=== PATIENT | female | born 1955 | race Caucasian/White ===

== ENCOUNTER → 2017-03-30 09:20 | Outpatient (CLI) | payer MEDICARE, SELFPAY ==
--- NOTE | 2017-03-30 08:00 | PET_ITS ---
EXAMINATION: FDG PET CT INDICATIONS: A 62-year-old female with history of ovarian carcinoma presenting for restaging examination. COMPARISON EXAMINATION: CT of the abdomen and pelvis report dated 02/21/17. INDEX LESION SIZE SUV INTERPRETATION Abdominal retroperitoneum and mesentery, hepatic capsule-cindy hepatis 56.7 mm x 59.0 mm largest (frame 150) 10.5 (max) Fulfills quantitative criteria for viable neoplasm Bilateral adrenal glands 4.3 (max) Fulfills quantitative criteria for viable neoplasm TECHNIQUE: Following the intravenous administration of 13.33 mCi of F-18 deoxyglucose via the right forearm, multiplanar image acquisitions of the neck, chest, abdomen and pelvis to level of mid thigh, obtained at one hour post radiopharmaceutical administration contemporaneously interpreted with the current CT of the neck, chest, abdomen and pelvis to level of mid thigh, dated 03/30/[address] of the abdomen and pelvis report dated 02/21/17 reveal: SERUM GLUCOSE LEVEL: 90 mg/dl. HEIGHT: 63 inches. WEIGHT: 150 lbs. FINDINGS: 1. Multifocal increased glucose metabolism is identified in the upper-mid abdominal retroperitoneum and mesentery in the distribution of the cindy hepatis, upper abdomen retrocrural in location and right upper abdomen multifocally apparent contiguous to the hepatic capsule. The calculated maximum standard uptake value is 10.5. The maximal axial diameter of the largest metabolic, morphologic abnormality on review of CT of the abdomen and pelvis dated 03/30/17 is approximately 56.7 mm (transverse) x 59.0 mm (AP), which may represent a component of aggregated adenopathy. 2. Enhanced glucose metabolism is defined in the bilateral upper abdomen contiguous to the left-right adrenal glands. The calculated maximum standard uptake value is 4.3. 3. Normal physiologic distribution of the radiopharmaceutical is apparent in the hepatic (3.1) and splenic parenchyma, both renal units, bladder and visualized intestinal tract. There is uniform distribution of the radiopharmaceutical concentration compared on the cerebellar hemispheres and cerebral cortex. Diffuse intestinal tract activity is noted throughout all four quadrants of the abdominal-pelvic retroperitoneum, mesentery consistent with normal physiologic distribution of the radiopharmaceutical. Pertinent CT findings are as follows. CHEST: There are no parenchymal densities-nodules demonstrated in the right-left hemithorax manifesting quantitatively significant increased glucose metabolism. Small bilateral hemithorax pleural effusions are ametabolic. Atherosclerotic calcification is defined in the thoracic aorta without evidence of dilatation, aneurysm formation. Coronary arterial calcification is observed. Scattered right-left axillary soft tissue is non-glucose avid. ABDOMEN AND PELVIS: The gallbladder is surgically absent. Atherosclerotic calcification is defined in the abdominal aorta without evidence of dilatation, aneurysm formation. Abdominal-pelvic arterial calcification is visualized. Right-left subcentimeter inguinal soft tissue densities with fatty hilus formation reveal no evidence of increased glucose metabolism. SKELETAL: Degenerative changes defined in the cervical, thoracic and lumbar spine demonstrate no evidence for glucose hypermetabolism. PET/PET/CT Tumor Base -Thigh Subs IMPRESSION: 1. ABNORMAL EXAMINATION INDICATIVE OF MALIGNANT VIABLE NEOPLASM. 2. Increased glucose concentration noted in the upper-mid abdominal retroperitoneum and mesentery, upper abdomen retrocrural in location and right upper abdomen-hepatic capsule fulfills quantitative criteria for viable neoplasm. 3. Facilitated glucose concentration observed in the right-left adrenal glands fulfills quantitative criteria for viable adrenal gland neoplasm. (Daniela and Arpaner, Journal of Nuclear Medicine 42:151 P 2002. Zac, Journal of Nuclear Medicine 45:1340, 2004). Electronic Signature Jorden Zheng D.O. Electronically Signed: Jorden Zheng DO at 23:41 EST Tel , Service support ,
== END ==
PROVIDERS: Family Provider Family Medicine; PCP Family Medicine
DX: C56.1 Malignant neoplasm of right ovary (principal)
CPT/HCPCS: 78815; A9552